=== PATIENT | female | born 1935 | race Caucasian/White ===

== ENCOUNTER 2016-08-04 08:50 | Outpatient (RCR) | payer MEDICARE, OTHER ==
[2013-10-06 15:29] VITALS: BP 164/82
[~2016-08-04 08:50] MED LIST: DITROPAN 5MG TAB5 MG PO; ESTRACE1 MG PO; LOTRISONE15 GM TOP; MECLICOT25 MG PO; PRINIVIL10 MG PO; TIMOLOL 0.25% OP; ZEGERID 20 MG-11 CAP PO
== END 2016-09-04 08:32 | disposition home or self-care (01) ==
LOC: PT 08:50
DX: M54.2 Cervicalgia (principal)

== ENCOUNTER → 2017-04-13 | Outpatient (CLI) | payer MEDICARE, OTHER ==
[2013-10-06 15:29] VITALS: BP 164/82
== END ==
LOC: MAMMO 09:14
DX: Z12.31 Encounter for screening mammogram for malignant neoplasm of breast (principal)
CPT/HCPCS: G0202

== ENCOUNTER → 2017-07-27 | Outpatient (CLI) | payer MEDICARE, OTHER ==
[2013-10-06 15:29] VITALS: BP 164/82
== END ==
LOC: RAD 09:01
DX: N89.8 Other specified noninflammatory disorders of vagina (principal)

== ENCOUNTER → 2018-04-19 | Outpatient (CLI) | payer MEDICARE, OTHER ==
[2013-10-06 15:29] VITALS: BP 164/82
== END ==
LOC: MAMMO 09:51
DX: Z12.31 Encounter for screening mammogram for malignant neoplasm of breast (principal)

== ENCOUNTER → 2019-02-20 | Outpatient (CLI) | payer MEDICARE, OTHER ==
[2013-10-06 15:29] VITALS: BP 164/82
== END ==
LOC: RAD 02-15 09:15 → MAMMO 02-15 09:15 → RAD 09:47
DX: Z13.820 Encounter for screening for osteoporosis (principal); M85.842 Other specified disorders of bone density and structure, left hand

== ENCOUNTER → 2019-04-25 | Outpatient (CLI) | payer MEDICARE, OTHER ==
[2013-10-06 15:29] VITALS: BP 164/82
== END ==
LOC: MAMMO 09:05
DX: Z12.31 Encounter for screening mammogram for malignant neoplasm of breast (principal)

== ENCOUNTER → 2020-04-30 | Outpatient (CLI) | payer MEDICARE, OTHER ==
[2013-10-06 15:29] VITALS: BP 164/82
== END ==
LOC: MAMMO 10:33
DX: Z12.31 Encounter for screening mammogram for malignant neoplasm of breast (principal)

== ENCOUNTER → 2021-05-06 | Outpatient (CLI) | payer MEDICARE, OTHER | LOC: MAMMO 05-01 10:00 | DX: Z12.31 Encounter for screening mammogram for malignant neoplasm of breast (principal) ==

== ENCOUNTER → 2024-05-15 | Outpatient (CLI) | payer MEDICARE | LOC: MAMMO 08:51 | DX: Z12.31 Encounter for screening mammogram for malignant neoplasm of breast (principal) ==

== ENCOUNTER → 2024-06-05 | Outpatient (CLI) | payer MEDICARE | LOC: RAD 14:44 | DX: M19.072 Primary osteoarthritis, left ankle and foot (principal) ==